=== PATIENT | female | born 1970 | race Caucasian/White ===

== ENCOUNTER 2023-06-15 12:06 | Outpatient (RCR) | payer OTHER, SELFPAY | END 2023-06-15 23:59 | disposition home or self-care (01) | LOC: ROT 12:06 | PROVIDERS: ATTENDING PHYSICIAN Orthopaedic Surgery Hand Surgery; FAMILY PHYSICIAN Family Medicine | DX: Z47.89 Encounter for other orthopedic aftercare (principal); M18.11 Unilateral primary osteoarthritis of first carpometacarpal joint, right hand | CPT/HCPCS: 97014; 97022; 97110 ==

== ENCOUNTER → 2024-01-19 14:31 | Outpatient (REF) | payer BC, SELFPAY | LOC: RAD 14:31 | PROVIDERS: ATTENDING PHYSICIAN Family Medicine; FAMILY PHYSICIAN Pain Medicine Interventional Pain Medicine | DX: M25.572 Pain in left ankle and joints of left foot (principal); M25.551 Pain in right hip | CPT/HCPCS: 73502; 73610 ==

== ENCOUNTER → 2024-01-25 15:43 | Outpatient (REF) | payer BC, SELFPAY | LOC: WDC 15:43 | PROVIDERS: ATTENDING PHYSICIAN Family Medicine | DX: Z12.31 Encounter for screening mammogram for malignant neoplasm of breast (principal) | CPT/HCPCS: 77063; 77067 ==

== ENCOUNTER 2025-03-15 06:22 | Day surgery (SDC) | payer OTHER, SELFPAY | END 2025-03-15 10:57 | disposition home or self-care (01) | LOC: GI 06:22 | PROVIDERS: ATTENDING PHYSICIAN Internal Medicine Gastroenterology | DX: Z12.11 Encounter for screening for malignant neoplasm of colon (principal); K51.40 Inflammatory polyps of colon without complications; K57.30 Diverticulosis of large intestine without perforation or abscess without bleeding; K64.8 Other hemorrhoids | CPT/HCPCS: 45380; 88305 ==

== ENCOUNTER → 2025-03-17 14:50 | Outpatient (REF) | payer OTHER, SELFPAY | LOC: WDC 14:50 | PROVIDERS: ATTENDING PHYSICIAN Family Medicine | DX: Z12.31 Encounter for screening mammogram for malignant neoplasm of breast (principal) | CPT/HCPCS: 77063; 77067 ==